=== PATIENT | male | born 1965 ===

== ENCOUNTER 2018-03-12 06:57 | Emergency (ER) | payer OTHER ==
[2018-03-12 07:27] VITALS: BMI 31.5
[2018-03-12 07:49] VITALS: RESP 20; O2SAT 98
[2018-03-12] MEDS ORDERED: Sodium Chloride 0.9% 1,000 ML IV STA (08:03)
[2018-03-12] MEDS ORDERED: Iohexol 240 (50 ml) ONE (08:05)
--- NOTE | 2018-03-12 08:05 | ED PDOC ---
HPI: Abdomen Time Seen by Provider: 03/12/18 07:49 Chief Complaint (Nursing): Abdominal Pain Chief Complaint (Provider): Abdominal Pain History Per: Patient History/Exam Limitations: no limitations Onset/Duration Of Symptoms: Days (x 4) Current Symptoms Are (Timing): Still Present Location Of Pain/Discomfort: LLQ Quality Of Discomfort: "Pain" Associated Symptoms: Nausea Additional Complaint(s): 53 year old male with a history of diverticulitis and asthma presents to the ED with LLQ abdominal pain associated with nausea for the last 4 days. Patient denies diarrhea, bloody stool, fever and urinary symptoms. PMD: Dr. Dickson Past Medical History Reviewed: Historical Data, Nursing Documentation, Vital Signs Vital Signs: Last Vital Signs Temp 97 F L 03/12/18 07:47 Pulse 69 03/12/18 07:47 Resp 20 03/12/18 07:47 BP 146/85 03/12/18 07:47 Pulse Ox 98 03/12/18 07:47 - Medical History PMH: Asthma (on Albuterol Inhaler), Back Problems, Diverticulitis, Fractures (RIGHT ANKLE), HTN, Hypercholesterolemia Denies: Colonic Polyps, Chronic Kidney Disease, Sleep Apnea, TIA - Surgical History Surgical History: Denies: Endoscopy - Family History Family History: States: Unknown Family Hx - Home Medications Home Medications: Ambulatory Orders Medication Instructions Recorded Ibuprofen [Motrin] 600 mg PO Q6 PRN #20 tab 07/05/14 Albuterol Sulfate [Proair Hfa] 2 puff INH BID 07/02/17 Amoxicillin [Amoxil 500 mg Cap] 500 mg PO BID 07/02/17 Ergocalciferol (Vitamin D2) 50,000 iu PO QWK 07/02/17 [Vitamin D2] Aspirin 81 mg PO DAILY 07/05/17 Rosuvastatin Calcium [Crestor] 5 mg PO DAILY 07/05/17 Ciprofloxacin HCl [Cipro] 500 mg PO BID #20 tab 03/12/18 Dicyclomine [Dicyclomine HCl] 10 mg PO Q8 #10 cap 03/12/18 Metronidazole [Flagyl] 500 mg PO TID #30 tablet 03/12/18 - Allergies Allergies/Adverse Reactions: Allergies Allergy/AdvReac Type Severity Reaction Status Date / Time No Known Allergies Allergy Verified 03/12/18 07:47 Review of Systems ROS Statement: Except As Marked, All Systems Reviewed And Found Negative Constitutional: Negative for: Fever Gastrointestinal: Positive for: Nausea, Abdominal Pain (LLQ). Negative for: Diarrhea, Hematochezia Genitourinary Male: Negative for: Dysuria, Frequency, Incontinence Physical Exam - Reviewed Nursing Documentation Reviewed: Yes Vital Signs Reviewed: Yes - Physical Exam Appears: Positive for: Non-toxic, No Acute Distress Head Exam: Positive for: ATRAUMATIC, NORMAL INSPECTION, NORMOCEPHALIC Skin: Positive for: Normal Color, Warm, Dry Eye Exam: Positive for: EOMI, Normal appearance, PERRL Neck: Positive for: Normal, Painless ROM, Supple Cardiovascular/Chest: Positive for: Regular Rate, Rhythm. Negative for: Murmur Respiratory: Positive for: Normal Breath Sounds. Negative for: Respiratory Distress Gastrointestinal/Abdominal: Positive for: Tenderness (LLQ ) Back: Positive for: Normal Inspection. Negative for: L CVA Tenderness, R CVA Tenderness Extremity: Positive for: Normal ROM (x 4). Negative for: Deformity Neurologic/Psych: Positive for: Alert, Oriented (x 3). Negative for: Motor/Sensory Deficits - Laboratory Results Result Diagrams: 03/12/18 08:22 03/12/18 08:22 - ECG O2 Sat by Pulse Oximetry: 98 (RA) Pulse Ox Interpretation: Normal Medical Decision Making Medical Decision Makin:02 Initial Plan: --VBG --Abd & Pelvis CT --CMP --CBC --Urine dip --Morphine 2 mg IVP --NS IV --Blood cx Scribe Attestation: Documented by Gerda Teague acting as a scribe for Randal Patterson MD Provider Scribe Attestation: All medical record entries made by the Scribe were at my direction and personally dictated by me. I have reviewed the chart and agree that the record accurately reflects my personal performance of the history, physical exam, medical decision making, and the department course for this patient. I have also personally directed, reviewed, and agree with the discharge instructions and disposition. Disposition - Clinical Impression Clinical Impression: Diverticulitis - Patient ED Disposition Is Patient to be Admitted: No Counseled Patient/Family Regarding: Studies Performed, Diagnosis, Need For Followup, Rx Given - Disposition Referrals: Victor Manuel Waller MD [Medical Doctor] - Disposition: Routine/Home Disposition Time: 10:53 Condition: FAIR Prescriptions: Ciprofloxacin HCl [Cipro] 500 mg PO BID #20 tab Dicyclomine [Dicyclomine HCl] 10 mg PO Q8 #10 cap Metronidazole [Flagyl] 500 mg PO TID #30 tablet Instructions: Diverticulitis Forms: [facility] (Czech)
[2018-03-12 08:26] LABS: BASO # 0.1 K/uL (0.0-0.2); BASO % 1.1 % (0.0-2.0); EOS # 0.3 K/uL (0.0-0.7); EOS % 3.6 % (0.0-4.0); LYMPH # 1.4 K/uL (1.0-4.3); LYMPH % 14.4 % (20.0-40.0); MEAN CORPUSCULAR HEMOGLOBIN 30.9 pg (27.0-31.0); MEAN CORPUSCULAR HGB CONC 33.6 g/dL (33.0-37.0); MEAN PLATELET VOLUME 8.9 fl (7.2-11.7); MONO # 0.9 K/uL (0.0-0.8); NEUT # 6.9 K/uL (1.8-7.0); NEUT % 71.9 % (50.0-75.0); RBC 4.86 Mil/uL (4.40-5.90); WHITE BLOOD COUNT 9.6 K/uL (4.8-10.8)
[2018-03-12 08:32] LABS: VENOUS BLOOD GAS BASE EXCESS -4.7 mmol/L (0.0-2.0); VENOUS BLOOD GAS PCO2 67 mmHg (40-60); VENOUS BLOOD GAS PO2 35 mm/Hg (30-55); VENOUS BLOOD PH 7.18 (7.32-7.43)
[2018-03-12 08:35] LABS: ALB/GLOB RATIO 1.2 (1.0-2.1); ALBUMIN 3.9 g/dL (3.5-5.0); ALT/SGPT 41 U/L (21-72); AST/SGOT 28 U/L (17-59); BLOOD UREA NITROGEN 15 mg/dl (9-20); CALCIUM 8.7 mg/dL (8.4-10.2); GFR NON-AFRICAN AMERICAN > 60
[2018-03-12] MEDS ORDERED: Iohexol 300 100 ML IJ ONE (09:56)
[2018-03-12] MEDS ORDERED: Sodium Chloride 0.9% 50 ML IV ONE (09:57)
--- NOTE | 2018-03-12 10:46 | CT ---
Date of service: 03/12/2018 PROCEDURE: CT Abdomen and Pelvis with contrast HISTORY: Abd pain COMPARISON: 08/30/2013 TECHNIQUE: Contrast dose: 95 mL Radiation dose: Total exam DLP = 822 mGy-cm. This CT exam was performed using one or more of the following dose reduction techniques: Automated exposure control, adjustment of the mA and/or kV according to patient size, and/or use of iterative reconstruction technique. FINDINGS: LOWER THORAX: Visualized distal esophagus, stomach, and duodenum are unremarkable LIVER: Liver is fatty infiltrated without evidence of focal mass or intrahepatic ductal dilatation. GALLBLADDER AND BILE DUCTS: Unremarkable. PANCREAS: Unremarkable. No gross lesion or ductal dilatation. SPLEEN: Unremarkable. ADRENALS: Unremarkable. No mass. KIDNEYS AND URETERS: Unremarkable. No hydronephrosis. No solid mass. VASCULATURE: Aorta is normal in size although mild aortoiliac atherosclerotic changes are appreciated. BOWEL: There is evidence of bowel wall thickening and pericolonic inflammatory change involving the junction of the distal left colon and proximal sigmoid colon consistent with diverticulitis. There is mild pericolonic inflammatory change and some mild non localized fluid in the left pericolic gutter and left inferior lateral pelvis. No free intraperitoneal air or portal venous air is clearly seen. Small bowel is unremarkable. Right colon is within normal limits. Terminal ileum is unremarkable. Mid the distal sigmoid colon is normal in outline. No rectal wall thickening is seen. APPENDIX: Normal appendix. PERITONEUM: Mild amount of fluid in the left pericolic gutter and left medial mid to lower pelvis without abscess formation. LYMPH NODES: Unremarkable. No enlarged lymph nodes. BLADDER: Unremarkable. REPRODUCTIVE: Prostate gland is top-normal in size. BONES: There is moderate degenerative changes in the lower lumbar spine region with prior lower lumbar spine fusion surgery identified. No focal fluid collections are seen within the laminectomy site. There is mild disc space narrowing and mild disc bulge or small protrusion seen at L4-5. Moderate neural foraminal narrowing is seen at L4-5 with additional neural foraminal narrowing seen at L5-S1. OTHER FINDINGS: None. IMPRESSION: Diverticulitis of the junction of the distal left colon and proximal sigmoid colon. Mild adjacent pericolonic inflammatory change and fluid although no focal localized fluid to suggest abscess is seen. No free intraperitoneal air.
[2018-03-12 11:14] VITALS: BP 122/78; PULSE 84; TEMP 98
== END 2018-03-12 11:14 | disposition home or self-care (01) ==
LOC: H.ER 06:57
DX: K57.92 Diverticulitis of intestine, part unspecified, without perforation or abscess without bleeding (principal); E78.00 Pure hypercholesterolemia, unspecified
CPT/HCPCS: 74177; 80053; 82803; 85025; 87040; 96361; 96374; 99283; J2270; J7030; Q9967